=== PATIENT | female | born 1995 | race Caucasian/White ===

== ENCOUNTER 2016-11-03 14:20 | Emergency (ER) | payer BC ==
[2016-11-03 14:40] VITALS: BP 137/76
[2016-11-03] MEDS ORDERED: Ibuprofen TAB* 600 MG PO ONE (14:58)
--- NOTE | 2016-11-03 15:00 | UC ---
Respiratory Complaint HPI - HPI Summary HPI Summary: Patient has had a cough, body aches, chills, fever for the past 5 days - History of Current Complaint Chief Complaint: UCRespiratory Stated Complaint: COUGH,SINUS,FEVER Time Seen by Provider: 11/03/16 14:42 Hx Obtained From: Patient Hx Last Menstrual Period: 10/23/16 ?: No Onset/Duration: Sudden Onset, Lasting Days Timing: Constant Severity Initially: Moderate Severity Currently: Moderate Character: Cough: Nonproductive Aggravating Factors: Deep Breaths Alleviating Factors: Nothing Associated Signs And Symptoms: Positive: Fever, Chills, URI - Risk Factors Pulmonary Embolism Risk Factors: Negative Cardiac Risk Factors: Negative Pseudomonas Risk Factors: Negative Tuberculosis Risk Factors: Negative - Allergies/Home Medications Allergies/Adverse Reactions: Allergies Allergy/AdvReac Type Severity Reaction Status Date / Time Ethanol [From Robitussin] Allergy Hives Verified 11/03/16 14:33 Guaifenesin [From Robitussin] Allergy Hives Verified 11/03/16 14:33 Penicillins Allergy Anaphylatic Verified 11/03/16 14:33 Shock Home Medications: Home Medications Guaifenesin/Pseudo 600/60(NF) [Mucinex D 600/60 (NF)] 2 tab PO Q12H PRN [History Confirmed 11/03/16] PMH/Surg Hx/FS Hx/Imm Hx Previously Healthy: Yes Endocrine History Of: Denies: Diabetes, Thyroid Disease Cardiovascular History Of: Denies: Cardiac Disorders, Hypertension, Pacemaker/ICD Respiratory History Of: Reports: Asthma - exercise Denies: COPD GI/ History Of: Denies: Ulcer, Renal Disease - Surgical History Surgical History: None - Family History Known Family History: Negative: Cardiac Disease, Hypertension - Social History Alcohol Use: Rare Substance Use Type: None Smoking Status (MU): Never Smoked Tobacco Have You Smoked in the Last Year: No - Immunization History Most Recent Influenza Vaccination: NO Hx Tetanus, Diphtheria Vaccination: Yes Vaccination Up to Date: Yes Review of Systems Constitutional: Fever, Chills, Fatigue Skin: Negative Eyes: Negative ENT: Negative Respiratory: Cough Cardiovascular: Negative Gastrointestinal: Negative Genitourinary: Negative Motor: Negative Neurovascular: Negative Musculoskeletal: Myalgia Neurological: Negative Psychological: Negative All Other Systems Reviewed And Are Negative: Yes Physical Exam Triage Information Reviewed: Yes Appearance: Well-Nourished, Ill-Appearing, Pain Distress Vital Signs: Initial Vital Signs Temp 99.2 F 11/03/16 14:34 Pulse 97 11/03/16 14:34 Resp 20 11/03/16 14:34 BP 137/76 11/03/16 14:34 Pulse Ox 98 11/03/16 14:34 Vital Signs Reviewed: Yes Eye Exam: Normal Eyes: Positive: Conjunctiva Clear ENT: Positive: Pharyngeal erythema, Nasal congestion, TMs normal Dental Exam: Normal Neck exam: Normal Neck: Positive: Supple, Nontender, No Lymphadenopathy Respiratory Exam: Normal Respiratory: Positive: Chest non-tender, Lungs clear, Normal breath sounds Cardiovascular Exam: Normal Cardiovascular: Positive: RRR, No Murmur, Pulses Normal Abdominal Exam: Normal Abdomen Description: Positive: Nontender, No Organomegaly, Soft Bowel Sounds: Positive: Present Musculoskeletal Exam: Normal Musculoskeletal: Positive: Strength Intact, ROM Intact, No Edema Neurological Exam: Normal Neurological: Positive: Alert, Muscle Tone Normal Psychological Exam: Normal Skin Exam: Normal UC Diagnostic Evaluation - Laboratory O2 Sat by Pulse Oximetry: 98 Respiratory Course/Dx - Course Course Of Treatment: history obtained, exam performed, rapid flu obtained and was negative, ibuprofen given. - Differential Dx/Diagnosis Differential Diagnosis/HQI/PQRI: Asthma, Bronchitis, Influenza, Laryngitis, Sinusitis Provider Diagnoses: viral syndrome. fever. fatigue Discharge - Discharge Plan Condition: Stable Disposition: HOME Patient Education Materials: Viral Syndrome (ED) Additional Instructions: Get plenty of rest, and increase your fluid intake. Ibuprofen and tylenol for pain and fever. Resume activity once fever is not present even without medication. Follow up with any worsening symptoms.
== END 2016-11-03 15:39 | disposition home or self-care (01) ==
LOC: UCCORT 14:20
DX: B34.9 Viral infection, unspecified (principal); R50.9 Fever, unspecified; R53.83 Other fatigue; Z88.0 Allergy status to penicillin
CPT/HCPCS: 87502; 99212; A9270-GY; G0463